=== PATIENT | male | born 1980 | race Caucasian/White ===

== ENCOUNTER 2017-11-24 02:58 | Emergency (ER) | payer MEDICAID ==
[~2017-11-24] VITALS: Ht 182.9 cm; Wt 117.9 kg
[2017-11-24] MEDS ORDERED: SODIUM CHLORIDE 0.9% 1,000 ML IV ONE (07:44)
[2017-11-24] MEDS ORDERED: METOCLOPRAMIDE HCL 5MG/ml INJ 2ml VIAL IV ONE (07:45)
[2017-11-24] MEDS ORDERED: NALBUPHINE HCL 10 MG/1ml INJECTION IV ONE (07:45)
[2017-11-24 09:11] VITALS: BP 130/86
[2017-11-24 09:19] LABS: Basophils # (auto) 0 uL; Basophils % (auto) 0.5 % (0.0-2.0); Eosinophils # (auto) 0.3 uL; Eosinophils % (auto) 3.1 % (0.0-7.0); Hematocrit 36.9 % (41.0-53.0); Lymphocytes % (auto) 9.9 % (10.0-50.0); Mean Corpuscular Hemoglobin 30.2 pg (28.0-32.0); Mean Corpuscular Hgb Conc. 32.6 g/dL (32.0-36.0); Mean Corpuscular Volume 92.6 fL (80.0-100.0); Monocytes # (auto) 0.6 uL; Monocytes % (auto) 6.4 % (0.0-12.0); Neutrophils # (auto) 7.7 uL; Neutrophils % (auto) 80.1 % (37.0-80.0); Platelet Count (auto) 297 10^3/uL (140-450); Red Blood Cells 3.98 10^6/uL (4.5-5.90); Red Cell Distribution Width 18.4 % (11.8-14.3); White Blood Cell 9.7 10^3/uL (4.4-10.8)
[2017-11-24 09:39] LABS: Albumin 3.1 g/dL (3.4-5.0); BUN/Creatinine Ratio 17.9; Bilirubin, Total 0.6 mg/dL (0.2-1.0); Calcium 8.2 mg/dL (8.5-10.1); Magnesium 2.3 mg/dL (1.6-2.6); Total Protein 6.3 g/dL (6.4-8.2)
[2017-11-24] MEDS ORDERED: POTASSIUM CHL 10% (20 MEQ/15ML) 15ml ORAL SOLN PO ONE (11:30)
== END 2017-11-24 12:08 | disposition home or self-care (01) ==
LOC: EDBD 02:58 → EDSEX 02:58 → ER 03:01
DX: S00.83XA Contusion of other part of head, initial encounter (principal); E87.6 Hypokalemia; E44.1 Mild protein-calorie malnutrition; Z98.84 Bariatric surgery status; Z85.038 Personal history of other malignant neoplasm of large intestine; Z85.51 Personal history of malignant neoplasm of bladder; Z68.35 Body mass index [BMI] 35.0-35.9, adult; W19.XXXA Unspecified fall, initial encounter; Y93.89 Activity, other specified; Y92.098 Other place in other non-institutional residence as the place of occurrence of the external cause; Y99.8 Other external cause status
CPT/HCPCS: 36415; 70450; 71046; 80053; 83735; 85025; 93005; 94761; 96361; 96374; 96375; 99285; J2300; J2765; J7030

== ENCOUNTER 2017-12-26 22:33 | Emergency (ER) | payer MEDICAID ==
[~2017-12-26] VITALS: Ht 185.4 cm; Wt 99.8 kg
[2017-12-26 23:23] LABS: Basophils # (auto) 0 uL; Basophils % (auto) 0.5 % (0.0-2.0); Eosinophils # (auto) 0.1 uL; Eosinophils % (auto) 1.2 % (0.0-7.0); Hematocrit 36.6 % (41.0-53.0); Hemoglobin 11.8 g/dL (13.5-17.5); Lymphocytes # (auto) 1.2 uL; Lymphocytes % (auto) 17.1 % (10.0-50.0); Mean Corpuscular Hgb Conc. 32.2 g/dL (32.0-36.0); Mean Corpuscular Volume 86.8 fL (80.0-100.0); Monocytes # (auto) 0.5 uL; Monocytes % (auto) 7.5 % (0.0-12.0); Neutrophils % (auto) 73.7 % (37.0-80.0); Platelet Count (auto) 266 10^3/uL (140-450); Red Blood Cells 4.22 10^6/uL (4.5-5.90); White Blood Cell 6.8 10^3/uL (4.4-10.8)
[2017-12-26 23:36] LABS: Albumin 3.7 g/dL (3.4-5.0); BUN/Creatinine Ratio 21.6; Calcium 8.6 mg/dL (8.5-10.1); Potassium 3.3 mmol/L (3.5-5.1)
[2017-12-26 23:38] LABS: Bilirubin, Total 0.9 mg/dL (0.2-1.0)
[2017-12-27] MEDS ORDERED: ALBUTEROL SULF 2.5 MG/0.5ML(0.5%) NEB SOLN NEB ONE (01:45)
[2017-12-27] MEDS ORDERED: HYDROcodone-ACET 10/325MG TAB PO ONE (01:45)
[2017-12-27] MEDS ORDERED: IPRATROPIUM BROM 0.5 MG/2.5ML INH SOL NEB ONE (01:45)
[2017-12-27] MEDS ORDERED: methylPREDNISolone SOD SUCC 125 MG/2 ML VL IM ONE (02:00)
[2017-12-27 03:45] VITALS: BP 132/82
== END 2017-12-27 04:23 | disposition home or self-care (01) ==
LOC: ER 22:33 → EDBD 22:33 → ER 12-27 04:23
DX: J45.901 Unspecified asthma with (acute) exacerbation (principal); M54.9 Dorsalgia, unspecified; M54.2 Cervicalgia
CPT/HCPCS: 36415; 71046; 72125; 72128; 80053; 85025; 93005; 94640; 96372; 99285; J2930

== ENCOUNTER 2018-01-02 13:10 | Inpatient (IN) | payer MEDICAID ==
[~2018-01-02] VITALS: Ht 188 cm; Wt 98.5 kg
[2018-01-02 14:41] LABS: Basophils # (auto) 0.1 uL; Basophils % (auto) 0.7 % (0.0-2.0); Eosinophils # (auto) 0.1 uL; Eosinophils % (auto) 0.9 % (0.0-7.0); Hematocrit 39.1 % (41.0-53.0); Hemoglobin 12.3 g/dL (13.5-17.5); Lymphocytes # (auto) 1.1 uL; Lymphocytes % (auto) 12.3 % (10.0-50.0); Mean Corpuscular Hemoglobin 27.2 pg (28.0-32.0); Mean Corpuscular Hgb Conc. 31.5 g/dL (32.0-36.0); Mean Corpuscular Volume 86.5 fL (80.0-100.0); Monocytes # (auto) 0.5 uL; Monocytes % (auto) 5.6 % (0.0-12.0); Neutrophils # (auto) 6.9 uL; Neutrophils % (auto) 80.5 % (37.0-80.0); Platelet Count (auto) 415 10^3/uL (140-450); Red Blood Cells 4.52 10^6/uL (4.5-5.90); Red Cell Distribution Width 17.4 % (11.8-14.3); White Blood Cell 8.6 10^3/uL (4.4-10.8)
[2018-01-02 15:02] LABS: Albumin 4.2 g/dL (3.4-5.0); Bilirubin, Total 1.8 mg/dL (0.2-1.0); Calcium 9.2 mg/dL (8.5-10.1); Total Protein 8.3 g/dL (6.4-8.2)
[2018-01-02] MEDS ORDERED: SODIUM CHLORIDE 0.9% 500 ML IV ONE (15:45)
[2018-01-02] MEDS ORDERED: MORPHINE SULFATE 4 MG/ML SYR/VIAL IV ONE (16:15)
[2018-01-02] MEDS ORDERED: ONDANSETRON HCL 4 MG/2 ML VIAL IV ONE (16:15)
[2018-01-02 18:00] LABS: Amylase 109 U/L (25-115); Lipase 483 U/L (73-393)
[2018-01-02 19:12] LABS: Urine Bacteria NONE SEEN /hpf (None Seen); Urine Blood Negative /uL (Negative); Urine Mucus FEW (None Seen); Urine Specific Gravity 1.027 (1.001-1.035); Urine WBC <1 /hpf (0 - 3)
[2018-01-02] MEDS ORDERED: LORazepam 0.5 MG TAB PO ONE (20:30)
[2018-01-02] MEDS ORDERED: NALBUPHINE HCL 10 MG/1ml INJECTION IV ONE (20:30)
[2018-01-02] MEDS: SODIUM CHLORIDE 0.9% 1,000 ML IV SCH (21:59)
[2018-01-02] MEDS ORDERED: cefTRIAXone 1GM/10ml IVPUSH 10 ML IV ONE (22:00)
[2018-01-02] MEDS: GABAPENTIN 300 MG CAP PO SCH (22:00)
[2018-01-02] MEDS: traZODone HCL 50 MG TAB PO SCH (22:00)
[2018-01-02] MEDS ORDERED: TEMAZEPAM 15 MG CAP PO PRN (22:00)
[2018-01-02] MEDS ORDERED: ACETAMINOPHEN 325 MG TAB PO PRN (22:00)
[2018-01-02] MEDS ORDERED: PANTOPRAZOLE 40 MG/10 ML VIAL IV ONE (22:00)
[2018-01-02 23:23] LABS: Hematocrit 35.5 % (41.0-53.0); Hemoglobin 11.3 g/dL (13.5-17.5)
[2018-01-02 23:41] LABS: Albumin 3.7 g/dL (3.4-5.0); BUN/Creatinine Ratio 22.1; Calcium 8.5 mg/dL (8.5-10.1); Potassium 4.1 mmol/L (3.5-5.1)
[2018-01-02 23:44] LABS: Bilirubin, Total 1.4 mg/dL (0.2-1.0); Total Protein 6.8 g/dL (6.4-8.2)
[2018-01-02 23:45] VITALS: BP 136/84
[2018-01-03 02:00] VITALS: BP 136/84
[2018-01-03] MEDS: MORPHINE SULFATE 4 MG/ML SYR/VIAL IV PRN ×5 (02:14→22:58)
[2018-01-03 02:45] VITALS: BP 136/84
[2018-01-03] MEDS ORDERED: KETOROLAC TROMETH 30 MG/ML 1ML VIAL IV ONE (03:15)
[2018-01-03] MEDS: HYDROcodone-ACET 5/325MG TAB PO PRN ×2 (04:41→11:47)
[2018-01-03] MEDS ORDERED: [UNRECOGNIZED DRUG - CODE] PO (04:45)
[2018-01-03] MEDS ORDERED: ONDA4TAB5 PO (04:45)
[2018-01-03] MEDS ORDERED: GABA100C9 PO (04:45)
[2018-01-03] MEDS ORDERED: LORA-622 PO (04:45)
[2018-01-03] MEDS ORDERED: ACET300T4 PO (04:45)
[2018-01-03 05:00] VITALS: BP 122/80
[2018-01-03 05:13] LABS: Basophils # (auto) 0.1 uL; Basophils % (auto) 0.9 % (0.0-2.0); Eosinophils # (auto) 0.2 uL; Eosinophils % (auto) 2.8 % (0.0-7.0); Hematocrit 37.6 % (41.0-53.0); Hemoglobin 11.9 g/dL (13.5-17.5); Lymphocytes % (auto) 16.2 % (10.0-50.0); Mean Corpuscular Hemoglobin 27.4 pg (28.0-32.0); Mean Corpuscular Hgb Conc. 31.7 g/dL (32.0-36.0); Mean Corpuscular Volume 86.5 fL (80.0-100.0); Monocytes # (auto) 0.5 uL; Monocytes % (auto) 8.1 % (0.0-12.0); Neutrophils # (auto) 4.4 uL; Platelet Count (auto) 397 10^3/uL (140-450); Red Blood Cells 4.35 10^6/uL (4.5-5.90); Red Cell Distribution Width 17.2 % (11.8-14.3); White Blood Cell 6.2 10^3/uL (4.4-10.8)
[2018-01-03 05:34] LABS: Calcium 8.9 mg/dL (8.5-10.1); Potassium 3.9 mmol/L (3.5-5.1)
[2018-01-03 05:36] LABS: BUN/Creatinine Ratio 20.5
[2018-01-03 05:39] LABS: Bilirubin, Total 1.5 mg/dL (0.2-1.0); Total Protein 7.4 g/dL (6.4-8.2)
[2018-01-03] MEDS: GABAPENTIN 300 MG CAP PO SCH ×3 (06:51→22:14)
[2018-01-03] MEDS: ONDANSETRON HCL 4 MG/2 ML VIAL IV PRN ×3 (08:29→17:14)
[2018-01-03] MEDS ORDERED: cefTRIAXone 1GM/10ml IVPUSH 10 ML IV SCH (09:00)
[2018-01-03] MEDS: ENOXAPARIN SOD 40 MG/0.4 ML SYRINGE SC SCH (10:00)
[2018-01-03] MEDS: SODIUM CHLORIDE 0.9% 1,000 ML IV SCH (11:46)
[2018-01-03] MEDS: PANTOPRAZOLE 40 MG/10 ML VIAL IV SCH (11:46)
[2018-01-03] MEDS ORDERED: GASTROGRAFIN 30 ML SOL ONE ×2 (12:03→12:04)
[2018-01-03] MEDS ORDERED: SODIUM CHLORIDE 0.9% 500 ML IV ONE (12:45)
[2018-01-03] MEDS ORDERED: IOHEXOL 300 MG/ML 100ML BOTTLE IJ ONE (14:23)
[2018-01-03] MEDS: HYDROcodone-ACET 10/325MG TAB PO PRN ×2 (14:46→20:21)
[2018-01-03 15:00] VITALS: BP 132/87
[2018-01-03 20:00] VITALS: BP 134/81
[2018-01-03 22:00] VITALS: BP 134/81
[2018-01-03] MEDS: traZODone HCL 50 MG TAB PO SCH (22:14)
[2018-01-04] MEDS: MORPHINE SULFATE 4 MG/ML SYR/VIAL IV PRN ×5 (03:06→22:14)
[2018-01-04] MEDS: SODIUM CHLORIDE 0.9% 1,000 ML IV SCH (03:09)
[2018-01-04 05:58] VITALS: BP 132/83
[2018-01-04] MEDS: GABAPENTIN 300 MG CAP PO SCH ×3 (06:03→22:13)
[2018-01-04] MEDS: HYDROcodone-ACET 10/325MG TAB PO PRN ×2 (06:03→10:24)
[2018-01-04 07:28] VITALS: BP 100/44
[2018-01-04 08:10] VITALS: BP 120/95
[2018-01-04] MEDS: ENOXAPARIN SOD 40 MG/0.4 ML SYRINGE SC SCH (10:00)
[2018-01-04 10:06] LABS: Basophils # (auto) 0 uL; Basophils % (auto) 0.4 % (0.0-2.0); Eosinophils # (auto) 0.2 uL; Eosinophils % (auto) 2.9 % (0.0-7.0); Hematocrit 33.7 % (41.0-53.0); Hemoglobin 10.8 g/dL (13.5-17.5); Lymphocytes # (auto) 0.6 uL; Lymphocytes % (auto) 10.7 % (10.0-50.0); Mean Corpuscular Hemoglobin 27.5 pg (28.0-32.0); Mean Corpuscular Volume 85.7 fL (80.0-100.0); Monocytes # (auto) 0.4 uL; Neutrophils # (auto) 4.7 uL; Platelet Count (auto) 353 10^3/uL (140-450); Red Blood Cells 3.93 10^6/uL (4.5-5.90); Red Cell Distribution Width 16.8 % (11.8-14.3)
[2018-01-04 10:22] LABS: INR 0.9 (0.9-1.15); Prothrombin Time 9.8 sec (9.37-12.3)
[2018-01-04] MEDS: PANTOPRAZOLE 40 MG/10 ML VIAL IV SCH (10:22)
[2018-01-04 10:25] LABS: Albumin 3.3 g/dL (3.4-5.0); BUN/Creatinine Ratio 12.2; Bilirubin, Direct 0.3 mg/dL (0-0.2); Bilirubin, Total 1.2 mg/dL (0.2-1.0); Calcium 8.7 mg/dL (8.5-10.1); Magnesium 2.7 mg/dL (1.6-2.6); Potassium 4.1 mmol/L (3.5-5.1); Total Protein 6.6 g/dL (6.4-8.2)
[2018-01-04 11:31] VITALS: BP 117/81
[2018-01-04 17:22] VITALS: BP 127/85
[2018-01-04 22:00] VITALS: BP 139/97
[2018-01-04] MEDS: traZODone HCL 50 MG TAB PO SCH (22:00)
[2018-01-04] MEDS ORDERED: PATIENTS OWN MEDICATION PO PRN (23:15)
[2018-01-04] MEDS: clonazePAM 0.5 MG TAB PO PRN (23:50)
[2018-01-05] MEDS: HYDROcodone-ACET 10/325MG TAB PO PRN ×4 (01:25→22:16)
[2018-01-05] MEDS: MORPHINE SULFATE 4 MG/ML SYR/VIAL IV PRN ×5 (02:17→21:00)
[2018-01-05 05:35] LABS: Basophils # (auto) 0 uL; Basophils % (auto) 0.5 % (0.0-2.0); Eosinophils # (auto) 0.2 uL; Eosinophils % (auto) 2.8 % (0.0-7.0); Hematocrit 32.7 % (41.0-53.0); Hemoglobin 10.7 g/dL (13.5-17.5); Mean Corpuscular Hemoglobin 27.4 pg (28.0-32.0); Mean Corpuscular Hgb Conc. 32.6 g/dL (32.0-36.0); Mean Corpuscular Volume 84.2 fL (80.0-100.0); Monocytes # (auto) 0.5 uL; Monocytes % (auto) 7.9 % (0.0-12.0); Neutrophils # (auto) 4.4 uL; Neutrophils % (auto) 72.8 % (37.0-80.0); Platelet Count (auto) 328 10^3/uL (140-450); Red Blood Cells 3.89 10^6/uL (4.5-5.90); Red Cell Distribution Width 16.8 % (11.8-14.3)
[2018-01-05 05:36] VITALS: BP 132/74
[2018-01-05 05:58] LABS: BUN/Creatinine Ratio 16.2; Calcium 8.7 mg/dL (8.5-10.1); Magnesium 2.6 mg/dL (1.6-2.6); Potassium 4.1 mmol/L (3.5-5.1)
[2018-01-05] MEDS: GABAPENTIN 300 MG CAP PO SCH ×3 (06:33→22:16)
[2018-01-05 09:00] VITALS: BP 137/82
[2018-01-05] MEDS: ENOXAPARIN SOD 40 MG/0.4 ML SYRINGE SC SCH (10:00)
[2018-01-05] MEDS: PANTOPRAZOLE 40 MG/10 ML VIAL IV SCH (10:24)
[2018-01-05] MEDS: ONDANSETRON HCL 4 MG/2 ML VIAL IV PRN (10:24)
[2018-01-05] MEDS: BENZONATATE 100MG CAPSULE PO PRN ×2 (11:37→23:58)
[2018-01-05 13:00] VITALS: BP 130/84
[2018-01-05 16:00] VITALS: BP 129/88
[2018-01-05 22:00] VITALS: BP 137/85
[2018-01-05] MEDS: traZODone HCL 50 MG TAB PO SCH (22:00)
[2018-01-05] MEDS: clonazePAM 0.5 MG TAB PO PRN (23:59)
[2018-01-06] MEDS: MORPHINE SULFATE 4 MG/ML SYR/VIAL IV PRN ×6 (01:10→20:19)
[2018-01-06 05:00] VITALS: BP 145/74
[2018-01-06 05:35] LABS: Basophils # (auto) 0 uL; Basophils % (auto) 0.6 % (0.0-2.0); Eosinophils # (auto) 0.2 uL; Eosinophils % (auto) 2.7 % (0.0-7.0); Hematocrit 33.8 % (41.0-53.0); Hemoglobin 10.9 g/dL (13.5-17.5); Lymphocytes # (auto) 0.9 uL; Lymphocytes % (auto) 16.5 % (10.0-50.0); Mean Corpuscular Hemoglobin 27.3 pg (28.0-32.0); Mean Corpuscular Hgb Conc. 32.4 g/dL (32.0-36.0); Mean Corpuscular Volume 84.3 fL (80.0-100.0); Monocytes # (auto) 0.5 uL; Monocytes % (auto) 9.3 % (0.0-12.0); Neutrophils % (auto) 70.9 % (37.0-80.0); Platelet Count (auto) 333 10^3/uL (140-450); White Blood Cell 5.7 10^3/uL (4.4-10.8)
[2018-01-06 05:50] LABS: INR 0.9 (0.9-1.15); Partial Thromboplastin Time 26.3 sec (22.64-33.71); Prothrombin Time 9.8 sec (9.37-12.3)
[2018-01-06 05:56] LABS: Albumin 3.4 g/dL (3.4-5.0); Calcium 8.8 mg/dL (8.5-10.1)
[2018-01-06 06:00] LABS: BUN/Creatinine Ratio 17.6
[2018-01-06] MEDS: GABAPENTIN 300 MG CAP PO SCH ×3 (06:01→20:19)
[2018-01-06 06:05] LABS: Bilirubin, Total 1.4 mg/dL (0.2-1.0); Total Protein 6.6 g/dL (6.4-8.2)
[2018-01-06 08:31] VITALS: BP 107/71
[2018-01-06] MEDS: ENOXAPARIN SOD 40 MG/0.4 ML SYRINGE SC SCH (10:00)
[2018-01-06] MEDS: PANTOPRAZOLE 40 MG/10 ML VIAL IV SCH (11:30)
[2018-01-06] MEDS: clonazePAM 0.5 MG TAB PO PRN (11:41)
[2018-01-06] MEDS: BENZONATATE 100MG CAPSULE PO PRN ×2 (11:41→20:20)
[2018-01-06] MEDS ORDERED: BUPIVACAINE 0.25% INJ 50ML VIAL ONE (14:50)
[2018-01-06] MEDS ORDERED: ceFAZolin 1GM/50ML 100 ML IV ONE (15:02)
[2018-01-06] MEDS ORDERED: MIDAZOLAM HCL 1MG/1ML-2 ML VIAL ONE (15:05)
[2018-01-06] MEDS ORDERED: PROPOFOL 10 MG/ML 20 ML IV ONE (15:10)
[2018-01-06] MEDS ORDERED: GLYCOPYRROLATE 0.2 MG/ML 1ML VIAL IV ONE (15:10)
[2018-01-06] MEDS ORDERED: PHENYLEPHRINE HCL 10 MG/ML VL IV ONE (15:10)
[2018-01-06] MEDS ORDERED: ROCURONIUM 10MG/ML 10ML VIAL IV ONE (15:11)
[2018-01-06] MEDS ORDERED: fentaNYL CITRATE 5 ML ONE (15:11)
[2018-01-06] MEDS ORDERED: MORPHINE SULFATE 4 MG/ML SYR/VIAL ONE (16:44)
[2018-01-06] MEDS ORDERED: ONDANSETRON HCL 4 MG/2 ML VIAL IV ONE (16:45)
[2018-01-06] MEDS ORDERED: ePHEDrine SULFATE 50 MG/ML AMP IV PRN (16:45)
[2018-01-06] MEDS ORDERED: hydrALAZINE HCL 20 MG/ML VL IV PRN (16:45)
[2018-01-06] MEDS: SODIUM CHLORIDE 0.9% 1,000 ML IV SCH (18:49)
[2018-01-06] MEDS: traZODone HCL 50 MG TAB PO SCH (20:20)
[2018-01-06] MEDS: HYDROcodone-ACET 10/325MG TAB PO PRN (21:42)
[2018-01-06] MEDS: ceFAZolin 1GM/50ML 50 ML IV SCH (21:47)
[2018-01-06 22:00] VITALS: BP 138/79
[2018-01-07] MEDS: SODIUM CHLORIDE 0.9% 1,000 ML IV SCH ×2 (02:30→12:30)
[2018-01-07] MEDS: MORPHINE SULFATE 4 MG/ML SYR/VIAL IV PRN ×2 (03:35→09:28)
[2018-01-07] MEDS: clonazePAM 0.5 MG TAB PO PRN (03:42)
[2018-01-07 05:00] VITALS: BP 134/76
[2018-01-07] MEDS: GABAPENTIN 300 MG CAP PO SCH (06:10)
[2018-01-07] MEDS: ceFAZolin 1GM/50ML 50 ML IV SCH (06:10)
[2018-01-07] MEDS: HYDROcodone-ACET 10/325MG TAB PO PRN ×2 (06:17→12:51)
[2018-01-07 06:36] LABS: Basophils # (auto) 0 uL; Basophils % (auto) 0.4 % (0.0-2.0); Eosinophils # (auto) 0.1 uL; Eosinophils % (auto) 1.9 % (0.0-7.0); Hematocrit 32.1 % (41.0-53.0); Hemoglobin 10.4 g/dL (13.5-17.5); Lymphocytes # (auto) 0.7 uL; Lymphocytes % (auto) 9.5 % (10.0-50.0); Mean Corpuscular Hemoglobin 27.5 pg (28.0-32.0); Mean Corpuscular Hgb Conc. 32.5 g/dL (32.0-36.0); Mean Corpuscular Volume 84.8 fL (80.0-100.0); Monocytes # (auto) 0.6 uL; Monocytes % (auto) 7.8 % (0.0-12.0); Neutrophils # (auto) 5.8 uL; Neutrophils % (auto) 80.4 % (37.0-80.0); Platelet Count (auto) 311 10^3/uL (140-450); Red Blood Cells 3.79 10^6/uL (4.5-5.90); White Blood Cell 7.2 10^3/uL (4.4-10.8)
[2018-01-07 07:06] LABS: Albumin 3.1 g/dL (3.4-5.0); BUN/Creatinine Ratio 12.9; Bilirubin, Direct 0.3 mg/dL (0-0.2); Bilirubin, Total 1.3 mg/dL (0.2-1.0); Calcium 8.7 mg/dL (8.5-10.1); Magnesium 2.4 mg/dL (1.6-2.6); Total Protein 6.5 g/dL (6.4-8.2)
[2018-01-07 09:00] VITALS: BP 124/74
[2018-01-07] MEDS: PANTOPRAZOLE 40 MG/10 ML VIAL IV SCH (09:27)
[2018-01-07] MEDS: ENOXAPARIN SOD 40 MG/0.4 ML SYRINGE SC SCH (09:28)
[2018-01-07 11:30] VITALS: BP 124/74
== END 2018-01-07 13:18 | disposition home or self-care (01) | DRG 263 ==
LOC: EDBD 13:10 → ER 13:10 → OVERFLOW 13:11 → WEST WING 23:20
PROVIDERS: ADMIT Nurse Practitioner; ATTEND Internal Medicine
PROC: 0FT44ZZ Resection of Gallbladder, Percutaneous Endoscopic Approach (ICD-10-PCS; principal; 2018-01-02)
PROC: 0DNU4ZZ Release Omentum, Percutaneous Endoscopic Approach (ICD-10-PCS; 2018-01-02)
DX: K80.12 Calculus of gallbladder with acute and chronic cholecystitis without obstruction (principal); K85.90 Acute pancreatitis without necrosis or infection, unspecified; F11.20 Opioid dependence, uncomplicated; E66.01 Morbid (severe) obesity due to excess calories; K62.5 Hemorrhage of anus and rectum; K64.9 Unspecified hemorrhoids; G62.9 Polyneuropathy, unspecified; E86.0 Dehydration; F41.9 Anxiety disorder, unspecified; G89.29 Other chronic pain; J45.909 Unspecified asthma, uncomplicated; K66.0 Peritoneal adhesions (postprocedural) (postinfection); Z83.3 Family history of diabetes mellitus; Z85.038 Personal history of other malignant neoplasm of large intestine; Z90.49 Acquired absence of other specified parts of digestive tract; Z92.21 Personal history of antineoplastic chemotherapy; Z98.84 Bariatric surgery status; Z88.5 Allergy status to narcotic agent; Z68.27 Body mass index [BMI] 27.0-27.9, adult
CPT/HCPCS: 36415; 74178; 76705; 78226; 80048; 80053; 80076; 81001; 82150; 83690; 83735; 85014; 85018; 85025; 85610; 85730; 86850; 86900; 86901; 93005; 96361; 96374; 96375; C9113; J0690; J2250; J2405; J2704; J3490

== ENCOUNTER 2018-02-05 13:10 | Emergency (ER) | payer MEDICAID ==
[~2018-02-05] VITALS: Ht 185.4 cm; Wt 104.3 kg
[~2018-02-05 13:10] MED LIST: GABA100C9 PO; LORA-622 PO; ONDA4TAB5 PO; [UNRECOGNIZED DRUG - CODE] PO
[2018-02-05 16:22] VITALS: BP 139/88
== END 2018-02-05 17:06 | disposition home or self-care (01) ==
LOC: ER 13:10 → EDBD 13:10 → ER 17:06
DX: F20.0 Paranoid schizophrenia (principal); F32.9 Major depressive disorder, single episode, unspecified; Z90.49 Acquired absence of other specified parts of digestive tract; Z87.81 Personal history of (healed) traumatic fracture
CPT/HCPCS: 70450

== ENCOUNTER 2018-02-06 00:31 | Emergency (ER) | payer MEDICAID ==
[~2018-02-06] VITALS: Ht 182.9 cm; Wt 90.7 kg
[2018-02-06] MEDS ORDERED: cloNIDine HCL 0.1 MG TAB ONE (00:42)
[2018-02-06] MEDS ORDERED: cloNIDine HCL 0.1 MG TAB PO ONE (01:00)
[2018-02-06 01:27] LABS: Basophils # (auto) 0 uL; Eosinophils # (auto) 0 uL; Hemoglobin 11.6 g/dL (13.5-17.5); Lymphocytes # (auto) 0.4 uL; Monocytes # (auto) 0.5 uL; Neutrophils # (auto) 3.5 uL
[2018-02-06 01:31] LABS: Basophils % (auto) 0.2 % (0.0-2.0); Eosinophils % (auto) 0.8 % (0.0-7.0); Hematocrit 36.8 % (41.0-53.0); Lymphocytes % (auto) 9.8 % (10.0-50.0); Mean Corpuscular Hemoglobin 25.8 pg (28.0-32.0); Mean Corpuscular Hgb Conc. 31.5 g/dL (32.0-36.0); Mean Corpuscular Volume 81.9 fL (80.0-100.0); Neutrophils % (auto) 78.2 % (37.0-80.0); Nucleated Red Blood Cells % 0.1 %; Red Cell Distribution Width 19.5 % (11.8-14.3); White Blood Cell 4.4 10^3/uL (4.4-10.8)
[2018-02-06 01:33] LABS: Platelet Count (auto) 115 10^3/uL (140-450)
[2018-02-06 01:45] LABS: Alanine Aminotransferase 62 U/L (16-61); Anion Gap 19 (5-15); Aspartate Aminotransferase 65 U/L (15-37); Blood Alcohol < 3.0 mg/dL (0-5); Blood Urea Nitrogen 10 mg/dL (7-18); Calcium 9.1 mg/dL (8.5-10.1); Carbon Dioxide 16 mmol/L (21-32); Chloride 104 mmol/L (98-107); GFR African American 145 mL/min; GFR Non-African American 120 mL/min; Glucose 84 mg/dL (74-106); Sodium 139 mmol/L (136-145)
[2018-02-06 01:46] LABS: Acetaminophen < 2.0 ug/mL (10-30); Salicylate < 1.7 mg/dL (2.8-20.0)
[2018-02-06 01:47] LABS: Alkaline Phosphatase 72 U/L (45-117); Bilirubin, Total 2.2 mg/dL (0.2-1.0); Total Protein 7.2 g/dL (6.4-8.2)
[2018-02-06 01:48] LABS: Potassium 2.9 mmol/L (3.5-5.1)
[2018-02-06] MEDS ORDERED: POTASSIUM CHL 20 Meq TABLET PO ONE ×2 (03:00→03:05)
[2018-02-06] MEDS ORDERED: LORazepam 2MG/ML-1ML VIAL IV ONE ×2 (03:00→10:15)
[2018-02-06] MEDS ORDERED: LORazepam 2MG/ML-1ML VIAL ONE (03:01)
[2018-02-06 03:25] LABS: Magnesium 1.9 mg/dL (1.6-2.6)
[2018-02-06 04:38] LABS: Urine Bacteria NONE SEEN /hpf (None Seen); Urine Blood Negative /uL (Negative); Urine Hyaline Cast MOD /lpf (0 - 2); Urine Mucus MODERATE (None Seen); Urine WBC 2 /hpf (0 - 3)
[2018-02-06 04:42] LABS: Alcohol, Urine < 3.0 mg/dL (0-5); Amphetamine Screen, Urine NEGATIVE (NEGATIVE); Barbiturate Scree,Urine NEGATIVE (NEGATIVE); Benzodiazephine Screen, Urine NEGATIVE (NEGATIVE); Cannabinoid Screen, Urine NEGATIVE (NEGATIVE); Cocaine Screen, Urine NEGATIVE (NEGATIVE); Opiate Scree,Urine NEGATIVE (NEGATIVE); Phencyclidine Screen, Urine NEGATIVE (NEGATIVE)
[2018-02-06] MEDS ORDERED: diphenhdrAMINE HCL 50 MG/1 ML VL ONE (05:21)
[2018-02-06] MEDS ORDERED: diphenhdrAMINE HCL 50 MG/1 ML VL IV ONE (05:30)
[2018-02-06 09:38] VITALS: BP 122/80
== END 2018-02-06 11:04 | disposition home or self-care (01) ==
LOC: ER 00:32
DX: F41.9 Anxiety disorder, unspecified (principal); E87.6 Hypokalemia; F20.9 Schizophrenia, unspecified; F32.9 Major depressive disorder, single episode, unspecified; R41.82 Altered mental status, unspecified; J45.909 Unspecified asthma, uncomplicated; Z90.49 Acquired absence of other specified parts of digestive tract
CPT/HCPCS: 36415; 70450; 80053; 80307; 80320; 80329; 81001; 83735; 84132; 84484; 85025; 96374; 96375; 96376; 99285; J1200; J2060